=== PATIENT | male | born 1955 | race Hispanic/Latino ===

== ENCOUNTER 2020-09-13 15:01 | Emergency (ER) | payer MEDICARE ==
[~2020-09-13] VITALS: Ht 162.6 cm; Wt 81.8 kg
[~2020-09-13 15:01] MED LIST: ALLERGY10 M1 PO; AMOXICILLIN500 MG PO; ASPIRIN81 MG PO; CEPHALEXIN500 MG OR; CLOPIDOGREL75 MG PO; LIPITOR20 M1 PO; LISINOPRIL5 MG PO; LOPRESSOR25 M1 PO; LORTAB5 OR; NAPROSYN500 MG PO; NITROSTAT0.4 MG SL; TAMSULOSIN HCL0.4 MG PO; cholesterol med
[2020-09-13 15:52] LABS: HEMOGLOBIN 14.1 g/dl (14.0-18.0); IMMATURE GRANULOCYTES 0.5 % (0.0-5.0); MEAN CELL VOLUME 88.4 fL CALC (80.0-100.0); MEAN CORPUSCULAR HGB 29.7 pG CALC (26.0-32.0); MEAN CORPUSCULAR HGB CONC 33.6 g/dL CAL (32.0-36.0); NEUT# 4.18 thou/uL (1.82-7.42); RED BLOOD COUNT 4.75 mill/uL (4.70-6.10)
[2020-09-13 16:06] LABS: ALKALINE PHOSPHATASE 116 u/l (38-126); ANION GAP 10 (6-22 (CALC)); BILIRUBIN, TOTAL 0.4 mg/dL (0.0-1.4); BUN 17 mg/dL (8-23); BUN/CREATININE RATIO 24 (12-20 (CALC)); CARBON DIOXIDE 28 mmol/l (22-30); CHLORIDE 102 mmol/l (95-108); CREATININE 0.7 mg/dL (0.7-1.3); GFR > 60 ML/MIN (>=60 (CALC)); GFR FOR AFR.AMER. > 60 ML/MIN (>=60 (CALC)); POTASSIUM 3.8 mmol/l (3.5-5.1); SGOT/AST 26 u/l (19-48); SODIUM 136 mmol/l (137-146); TOTAL PROTEIN 6.9 g/dL (6.3-8.2)
[2020-09-13 16:20] LABS: ACT PARTIAL THROMBO TIME 22.1 SECONDS (20.0-32.5); INTERNATIONAL NORMALIZED RATIO 0.9 RATIO (0.7-1.3); PROTHROMBIN TIME 9.3 SECONDS (9.0-12.5)
[2020-09-13] MEDS ORDERED: HYDROCO/APAP1 TA9 PO (17:46)
[2020-09-13] MEDS ORDERED: KEFLEX500 MG PO (17:46)
[2020-09-13 18:40] VITALS: BP 134/68
== END 2020-09-13 18:41 | disposition home or self-care (01) ==
LOC: ED 15:01
PROC: 0HQ1XZZ Repair Face Skin, External Approach (ICD-10-PCS; principal; 2020-09-13)
DX: S01.22XA Laceration with foreign body of nose, initial encounter (principal); H57.12 Ocular pain, left eye; W20.8XXA Other cause of strike by thrown, projected or falling object, initial encounter; Y92.008 Other place in unspecified non-institutional (private) residence as the place of occurrence of the external cause

== ENCOUNTER 2021-03-18 19:40 | Emergency (ER) | payer MEDICARE ==
[~2021-03-18 19:40] MED LIST changes: +HYDROCO/APAP1 TA9 PO; +KEFLEX500 MG PO
[2021-03-18] MEDS ORDERED: IBUPROFEN600 MG PO (22:15)
[2021-03-18] MEDS ORDERED: AMOX/K CLAV875 M1 PO (22:15)
[2021-03-18 22:47] VITALS: BP 131/72
== END 2021-03-18 22:47 | disposition home or self-care (01) ==
LOC: ED 19:40
PROC: 0HQNXZZ Repair Left Foot Skin, External Approach (ICD-10-PCS; principal; 2021-03-18)
PROC: 0HQEXZZ Repair Left Lower Arm Skin, External Approach (ICD-10-PCS; 2021-03-18)
DX: S61.552A Open bite of left wrist, initial encounter (principal); S91.352A Open bite, left foot, initial encounter; F17.200 Nicotine dependence, unspecified, uncomplicated; W54.0XXA Bitten by dog, initial encounter; Y93.K9 Activity, other involving animal care; Y92.79 Other farm location as the place of occurrence of the external cause

== ENCOUNTER 2022-01-10 08:08 | Day surgery (SDC) | payer MEDICARE ==
[~2022-01-10] VITALS: Ht 162.6 cm; Wt 88.5 kg
[~2022-01-10 08:08] MED LIST changes: +AMOX/K CLAV875 M1 PO; +IBUPROFEN600 MG PO
[2022-01-10 10:00] VITALS: BP 115/69
== END 2022-01-10 10:16 | disposition home or self-care (01) ==
LOC: ENDO 08:08
PROVIDERS: ATTEND Surgery
PROC: 0DJD8ZZ Inspection of Lower Intestinal Tract, Via Natural or Artificial Opening Endoscopic (ICD-10-PCS; principal; 2022-01-10)
DX: Z12.11 Encounter for screening for malignant neoplasm of colon (principal); K57.30 Diverticulosis of large intestine without perforation or abscess without bleeding; I10 Essential (primary) hypertension; I25.2 Old myocardial infarction